=== PATIENT | female | born 1975 | race Caucasian/White ===

== ENCOUNTER 2017-05-23 13:54 | Emergency (ER) | payer BC ==
[~2017-05-23 13:54] MED LIST: ADDERALL10 MG PO; ADDERALL15 MG PO; AMPHETAMINE SAL15 MG PO; BACTRIM,SEPT1 TABLET PO; DICYCLOMINE HCL10 MG PO; FOLBIC RF TABL1 EACH PO; GUAIFENESIN WI120 ML PO; HYDROXYCHLOROQ200 MG PO; KEFLEX500 MG PO; LIBRAX, CLI1 CAPSULE PO; NAPROSYN500 MG PO; NOHOMEMEDS; OMEPRAZOLE20 MG PO; ONDANSETRON HCL4 MG PO; PERCOCET 5/31 TABLET PO; PLAQUENIL200 MG PO; TRAMADOL HCL50 MG PO; ULTRAM50 MG PO; VICODIN HP 10-1 EACH PO
== END 2017-05-23 13:55 | disposition left against medical advice (07) ==
LOC: EME 13:54
DX: G89.18 Other acute postprocedural pain (principal); Z53.21 Procedure and treatment not carried out due to patient leaving prior to being seen by health care provider
CPT/HCPCS: 93005